=== PATIENT | male | born 1995 | race Caucasian/White ===

== ENCOUNTER 2021-07-14 12:48 | Emergency (ER) | payer BC ==
[~2021-07-14] VITALS: Ht 162.6 cm; Wt 59.0 kg
[2021-07-14 12:59] VITALS: BP 121/76
[2021-07-14 14:35] LABS: BASOPHILS % 0.4 % (0.0-2.0); EOSINOPHILS % 1.4 % (0.0-5.0); HEMATOCRIT. 40.2 % (42.0-52.0); HEMOGLOBIN. 13.9 g/dL (14.0-18.0); LYMPHOCYTES % 20.7 % (20.0-50.0); MEAN CORPUSCULAR HEMOGLOBIN 29.2 pg (28.0-32.0); MEAN CORPUSCULAR VOLUME 84.3 fL (80.0-94.0); MEAN PLATELET VOLUME 7.3 fl (7.4-10.4); MONOCYTES % 8.2 % (2.0-8.0); NEUTROPHILS % 69.3 % (40.0-76.0); PLATELET 293 x1000/uL (130-400); RED BLOOD CELL COUNT 4.76 mill/uL (4.7-6.1); RED CELL DISTRIBUTION WIDTH 12.9 % (11.6-14.6)
[2021-07-14 14:40] LABS: CHLORIDE 107 mEq/L (98-107)
[2021-07-14] MEDS ORDERED: IOHEXOL-350 100 ML BOTTLE ONE (17:21)
== END 2021-07-14 17:05 | disposition home or self-care (01) ==
LOC: ER 12:48
DX: G43.909 Migraine, unspecified, not intractable, without status migrainosus (principal); Z98.890 Other specified postprocedural states
CPT/HCPCS: 36415; 70496; 80048; 85025; 99285; Q9967